=== PATIENT | male | born 1945 | race Hispanic/Latino ===

== ENCOUNTER → 2023-02-04 | Outpatient (CLI) | payer OTHER | END | disposition home or self-care (01) | LOC: RAH 08:50 | PROVIDERS: ATTEND Internal Medicine Gastroenterology | DX: K74.60 Unspecified cirrhosis of liver (principal); N28.1 Cyst of kidney, acquired; R16.1 Splenomegaly, not elsewhere classified; Z90.49 Acquired absence of other specified parts of digestive tract | CPT/HCPCS: 76700; 93975 ==

== ENCOUNTER → 2023-12-03 | Outpatient (CLI) | payer OTHER ==
[~2023-12-03] MED LIST: GADOTERATE MEGLUMINE 10 MMOL/20 ML VIAL IV ONE
== END | disposition home or self-care (01) ==
LOC: RAH 10:33
PROVIDERS: ATTEND Internal Medicine Gastroenterology
DX: K74.60 Unspecified cirrhosis of liver (principal); N28.1 Cyst of kidney, acquired; R93.2 Abnormal findings on diagnostic imaging of liver and biliary tract; R16.1 Splenomegaly, not elsewhere classified; N13.30 Unspecified hydronephrosis
CPT/HCPCS: 74183; A9575

== ENCOUNTER → 2024-02-21 | Day surgery (SDC) | payer OTHER ==
[~2024-02-21] MED LIST changes: +FENTANYL CITRATE PF 50 MCG/1 ML 2ML VIAL ONE; +FURO40TA5 PO; -GADOTERATE MEGLUMINE 10 MMOL/20 ML VIAL IV ONE; +LEVO50 PO; +MIDAZOLAM HCL 1 MG/ML 2ML VIAL ONE; +NADO40TA2 PO; +PANT40TA54 PO; +SPIR100T PO
[2024-02-21 09:26] LABS: BASOPHILS # (AUTO) 0.02 K/uL (0.00-0.20); BASOPHILS % (AUTO) 0.7 % (0.0-5.0); EOSINOPHILS # (AUTO) 0.08 K/uL (0.00-0.70); EOSINOPHILS % (AUTO) 2.7 % (0.0-8.0); HEMATOCRIT 34.5 % (42-54); IMMATURE GRANULOCYTE ABSOLUTE 0.01 K/uL (0-1); LYMPHOCYTES # (AUTO) 0.5 K/uL (1.0-4.8); MEAN CORPUSCULAR HEMOGLOBIN 24.2 pg (27.0-33.0); MEAN CORPUSCULAR VOLUME 78.1 fL (79-99); MONOCYTES # (AUTO) 0.4 K/uL (0.1-1.0); NEUTROPHILS % (AUTO) 67.3 % (40.0-77.0); PLATELET COUNT (AUTO) 70 K/uL (130-400); RED BLOOD CELL COUNT(AUTO) 4.42 MIL/uL (4.50-6.20); RED CELL DISTRIBUTION WIDTH 23.6 % (11.0-15.5)
[2024-02-21 09:37] LABS: INR 1.22 (0.85-1.15)
[2024-02-21 10:29] LABS: EOSINOPHILS % (MANUAL) 2 % (1-6); LYMPHOCYTES % (MANUAL) 13 % (22-44); MAN.DIFF COMMENT-IMPRESSION MANUAL DIFFERENTIAL; MONOCYTES % (MANUAL) 6 % (2-9); SEGMENTED NEUTROPHILS % 79 % (40-70); TOTAL CELLS COUNTED 100
[2024-02-21 10:30] LABS: PLATELET MORPHOLOGY COMMENT DECREASED
[2024-02-21 13:05] VITALS: BP 148/52; PULSE 65; RESP 16
[2024-02-21 13:20] VITALS: BP 143/60; PULSE 68; RESP 16
[2024-02-21 13:35] VITALS: BP 135/71; PULSE 78; RESP 15
[2024-02-21 13:50] VITALS: BP 139/49; PULSE 81; RESP 16
[2024-02-21 13:59] VITALS: BP 148/50; PULSE 65; RESP 14
[2024-02-21 14:20] VITALS: BP 147/65; PULSE 71; RESP 14
== END | disposition home or self-care (01) ==
LOC: RAH 08:52 → EDSTATUS 10:00
PROVIDERS: ATTEND Internal Medicine Medical Oncology
DX: R16.0 Hepatomegaly, not elsewhere classified (principal); C22.0 Liver cell carcinoma; D70.9 Neutropenia, unspecified; D64.9 Anemia, unspecified; K74.60 Unspecified cirrhosis of liver; I85.10 Secondary esophageal varices without bleeding; I10 Essential (primary) hypertension; K21.9 Gastro-esophageal reflux disease without esophagitis; E03.9 Hypothyroidism, unspecified; B19.20 Unspecified viral hepatitis C without hepatic coma; Z90.49 Acquired absence of other specified parts of digestive tract; Z98.1 Arthrodesis status; Z79.899 Other long term (current) drug therapy
CPT/HCPCS: 47000; 85025; 85610; 85730; 36415; 88313; 88307; 76705; 76942; J3010; J2250; C2615; A4215; A4222; A4221; A4663; A4216; A4606; A4223 ×3; 99152; 99153; G0500

== ENCOUNTER 2024-02-29 10:59 | Observation (INO) | payer OTHER ==
[~2024-02-29] VITALS: Ht 165.1 cm; Wt 81.6 kg
[2024-02-29 11:33] LABS: BASOPHILS # (AUTO) 0.01 K/uL (0.00-0.20); BASOPHILS % (AUTO) 0.3 % (0.0-5.0); EOSINOPHILS # (AUTO) 0.09 K/uL (0.00-0.70); EOSINOPHILS % (AUTO) 2.3 % (0.0-8.0); HEMATOCRIT 34.7 % (42-54); IMMATURE GRANULOCYTE ABSOLUTE 0.01 K/uL (0-1); LYMPHOCYTES # (AUTO) 0.5 K/uL (1.0-4.8); LYMPHOCYTES % (AUTO) 12.8 % (21.0-51.0); MEAN CORPUSCULAR HEMOGLOBIN 25.8 pg (27.0-33.0); MEAN CORPUSCULAR VOLUME 80.5 fL (79-99); MONOCYTES # (AUTO) 0.4 K/uL (0.1-1.0); MONOCYTES % (AUTO) 11.5 % (3.0-13.0); NEUTROPHILS # (AUTO) 2.8 K/uL (1.8-7.7); NEUTROPHILS % (AUTO) 72.8 % (40.0-77.0); PLATELET COUNT (AUTO) 80 K/uL (130-400); RED BLOOD CELL COUNT(AUTO) 4.31 MIL/uL (4.50-6.20); RED CELL DISTRIBUTION WIDTH 23.6 % (11.0-15.5); WHITE BLOOD COUNT (AUTO) 3.8 K/uL (4.8-10.8)
[2024-02-29 11:46] LABS: CREATININE 1.2 mg/dL (0.5-1.3); POTASSIUM 3.9 mmol/L (3.5-5.1)
[2024-02-29 11:51] LABS: ALBUMIN 3.1 g/dL (3.5-5.0); BILIRUBIN,TOTAL 1.2 mg/dL (0.2-1.0); TOTAL PROTEIN, SERUM 7.8 g/dL (6.0-8.3)
[2024-02-29 12:10] LABS: APPEARANCE,URINE CLEAR (CLEAR); BILIRUBIN,URINE NEGATIVE (NEGATIVE); COLOR,URINE YELLOW (YELLOW); GLUCOSE, URINE (UA) NEGATIVE (NEGATIVE); KETONES,URINE NEGATIVE (NEGATIVE); LEUKOCYTE ESTERASE ,URINE NEGATIVE Leu/uL (NEGATIVE); NITRATE,URINE NEGATIVE (NEGATIVE); OCCULT BLOOD,URINE NEGATIVE (NEGATIVE); PH,URINE 6.5 (5.0-8.0); PROTEIN,URINE NEGATIVE (NEGATIVE)
[2024-02-29 12:12] LABS: ADD UA MICROSCOPIC YES
[2024-02-29 12:13] LABS: MUCUS,URINE RARE LPF (None Seen); RBC,URINE 0-1 /HPF (0-1); SQUAMOUS EPITHELIAL CELL,UR RARE /HPF (0-2); WBC,URINE 0-1 /HPF (0-1)
[2024-02-29] MEDS ORDERED: IOHEXOL 350 MG/ML 100ML INFUS..BTL IV ONE (13:05)
[2024-02-29] MEDS: MORPHINE 4 MG SYG IVP ONE (13:14)
[2024-02-29 13:25] LABS: INR 1.12 (0.85-1.15)
[2024-02-29 13:27] LABS: PARTIAL THROMBOPLASTIN TIME 38.9 SEC (26.3-35.5)
[2024-02-29] MEDS ORDERED: LACTULOSE 20 GM/30 ML UDCUP PO PRN (15:00)
[2024-02-29] MEDS ORDERED: GUAIFENESIN SUGAR-FREE 100 MG/5 ML UDCUP PO PRN (15:00)
[2024-02-29] MEDS ORDERED: DOCUSATE SODIUM 100 MG CAP PO PRN (15:00)
[2024-02-29] MEDS ORDERED: DiphenhydrAMINE HCL 50 MG/ML VIAL IV PRN (15:00)
[2024-02-29] MEDS ORDERED: ACETAMINOPHEN 325 MG TAB PO PRN ×2 (15:00)
[2024-02-29] MEDS ORDERED: DIPHENHYDRAMINE HCL 25 MG CAPSULE PO PRN (15:00)
[2024-02-29] MEDS ORDERED: ONDANSETRON 4MG INJ IV PRN (15:00)
[2024-02-29] MEDS ORDERED: POLYETHYLENE GLYCOL 3350 17 GM POWD.PACK PO PRN (15:00)
[2024-02-29] MEDS: 0.9%NACL 1000ML 1,000 ML IV SCH (15:29)
[2024-02-29 16:30] VITALS: O2SAT 98
[2024-02-29] MEDS: INSULIN HUMULIN R 100 UNIT/ML 3ML SQ SCH (16:30)
[2024-02-29 16:35] VITALS: BP 126/75; PULSE 65; RESP 20
[2024-02-29] MEDS ORDERED: ENOXAPARIN SODIUM 40 MG/0.4 ML SYRINGE SQ SCH (17:00)
[2024-02-29 20:00] VITALS: BP 131/67; PULSE 63; RESP 17
[2024-02-29] MEDS: MORPHINE 2 MG SYG IVP ONE (20:59)
[2024-02-29] MEDS ORDERED: FAMOTIDINE 20MG TAB PO SCH (21:00)
[2024-02-29 21:07] VITALS: O2SAT 99
[2024-02-29] MEDS: PANTOPRAZOLE 40 MG/VIAL IVP SCH (21:07)
[2024-02-29] MEDS: LIDOCAINE 5% TOPICAL PATCH TP SCH (21:56)
[2024-02-29 23:45] VITALS: BP 129/60; PULSE 85; RESP 18
[2024-03-01 03:57] VITALS: BP 127/61; PULSE 65; RESP 19
[2024-03-01 05:29] LABS: BASOPHILS # (AUTO) 0.01 K/uL (0.00-0.20); BASOPHILS % (AUTO) 0.3 % (0.0-5.0); EOSINOPHILS # (AUTO) 0.11 K/uL (0.00-0.70); EOSINOPHILS % (AUTO) 3.5 % (0.0-8.0); HEMATOCRIT 30.9 % (42-54); IMMATURE GRANULOCYTE ABSOLUTE 0.01 K/uL (0-1); LYMPHOCYTES # (AUTO) 0.5 K/uL (1.0-4.8); LYMPHOCYTES % (AUTO) 14.5 % (21.0-51.0); MEAN CORPUSCULAR HGB CONC 31.7 g/dL (32.0-36.0); MONOCYTES # (AUTO) 0.4 K/uL (0.1-1.0); MONOCYTES % (AUTO) 14.2 % (3.0-13.0); NEUTROPHILS # (AUTO) 2.1 K/uL (1.8-7.7); NEUTROPHILS % (AUTO) 67.2 % (40.0-77.0); PLATELET COUNT (AUTO) 63 K/uL (130-400); RED BLOOD CELL COUNT(AUTO) 3.77 MIL/uL (4.50-6.20); RED CELL DISTRIBUTION WIDTH 23.6 % (11.0-15.5); WHITE BLOOD COUNT (AUTO) 3.1 K/uL (4.8-10.8)
[2024-03-01 05:41] LABS: ALBUMIN 2.6 g/dL (3.5-5.0); BILIRUBIN,TOTAL 0.7 mg/dL (0.2-1.0); CREATININE 1.2 mg/dL (0.5-1.3); POTASSIUM 4.1 mmol/L (3.5-5.1); TOTAL PROTEIN, SERUM 6.9 g/dL (6.0-8.3)
[2024-03-01 08:00] VITALS: BP 123/63; PULSE 64; RESP 18
[2024-03-01 10:00] VITALS: O2SAT 96
[2024-03-01] MEDS: GABAPENTIN 100 MG CAPSULE PO PRN (11:15)
[2024-03-01] MEDS: HYDROMORPHONE 0.5 MG SYG (0.5MG/0.5ML) IVP PRN (11:16)
[2024-03-01 11:52] VITALS: BP 122/70; PULSE 67; RESP 20
[2024-03-01] MEDS ORDERED: LEVO50 PO (15:05)
[2024-03-01] MEDS ORDERED: NADO40TA2 PO (15:05)
[2024-03-01] MEDS ORDERED: SPIR100T PO (15:05)
[2024-03-01] MEDS ORDERED: PANT40TA54 PO (15:05)
[2024-03-01] MEDS ORDERED: FURO40TA5 PO (15:05)
== END 2024-03-01 16:30 | disposition home or self-care (01) ==
LOC: EDH 10:59 → EDHIP 14:49 → INTOOBSV 14:49 → 3DH 16:30
PROVIDERS: ADMIT Internal Medicine Pulmonary Disease; ATTEND Internal Medicine Pulmonary Disease
DX: K74.60 Unspecified cirrhosis of liver (principal); I85.10 Secondary esophageal varices without bleeding; I86.4 Gastric varices; D61.818 Other pancytopenia; R10.31 Right lower quadrant pain; E03.9 Hypothyroidism, unspecified; I81 Portal vein thrombosis; D50.9 Iron deficiency anemia, unspecified; R16.2 Hepatomegaly with splenomegaly, not elsewhere classified; E87.1 Hypo-osmolality and hyponatremia; K76.6 Portal hypertension; R73.9 Hyperglycemia, unspecified; I50.9 Heart failure, unspecified; Z79.899 Other long term (current) drug therapy
CPT/HCPCS: 96376 ×2; 96374; 96375 ×2; 96361 ×2; 99285; 83735; 80053 ×2; 82140; 83690; 85025 ×2; 85610; 85730; 82948 ×3; 81001; 36415 ×2; 71045; 71270; 74177; 86850; 86900; 86901; G0378 ×26; J2270 ×2; J7030; Q9967; J1170; J2470